=== PATIENT | female | born 1965 | race African-American/Black ===

== ENCOUNTER 2016-11-15 18:47 | Emergency (ER) | payer BC ==
[~2016-11-15] VITALS: Ht 154.9 cm; Wt 84.8 kg
[2016-11-15] MEDS ORDERED: Ipratropium 0.02% Inh Soln 2.5ml UD HHN ONE (19:45)
[2016-11-15] MEDS ORDERED: Albuterol ud Inhalation HHN ONE (19:45)
[2016-11-15] MEDS ORDERED: ALBUTEROL SULF8.5 GM INH (19:53)
[2016-11-15] MEDS ORDERED: PREDNISONE20 MG ORAL (19:53)
[2016-11-15] MEDS ORDERED: PROMETHAZINE-C118 M1 ORAL (19:53)
--- NOTE | 2016-11-15 19:53 | Emergency Room Report ---
History of Present Illness General Chief Complaint: Upper Respiratory Illness Source: Patient Present Illness HPI 51 YO Female presents to the ED c/o dry cough and chest congestion x 3 day(s). No fevers or chills. She denies history of asthma, COPD. Patient does report history of smoking in the past. Patient states that when she attempts to take a deep breath it causes her to cough multiple times. Patient denies chest pain. Patient denies swelling in the lower extremities or history of cardiac disease. Patient reports intermittent clear productive sputum and phlegm. She denies neck pain or stiffness denies abdominal pain or rashes.Denies CP, Palpitations, LOC, AMS, dizziness, Changes in Vision, Sensation, paresthesias, or a sudden severe headache. Allergies: Coded Allergies: No Known Allergies (Unverified , 11/15/16) Patient History Past Medical History: see triage record Past Surgical History: none Pertinent Family History: none Last Menstrual Period: menopause Now: No Immunizations: UTD Reviewed Nursing Documentation: PMH: Agreed, PSxH: Agreed Nursing Documentation-PMH Past Medical History: No Stated History Review of Systems All Other Systems: negative except mentioned in HPI Physical Exam Vital Signs Date Time Temp Pulse Resp B/P Pulse Ox O2 Delivery O2 Flow Rate FiO2 11/15/16 19:10 98.2 91 17 118/75 100 Room Air Sp02 EP Interpretation: reviewed, normal General Appearance: no apparent distress, alert, GCS 15, non-toxic Head: normocephalic, atraumatic Eyes: bilateral eye PERRL, bilateral eye normal inspection ENT: hearing grossly normal, normal pharynx, no angioedema, normal voice, TMs + canals normal, uvula midline Neck: full range of motion, no meningismus, no bony tend, supple/symm/no masses Respiratory: chest non-tender, speaking full sentences, wheezing Cardiovascular #1: regular rate, rhythm, no edema, normal capillary refill Musculoskeletal: back normal, gait/station normal, normal range of motion, non- tender, no calf tenderness Neurologic: alert, oriented x3, responsive, motor strength/tone normal, sensory intact, speech normal Psychiatric: judgement/insight normal, memory normal, mood/affect normal Skin: normal color, no rash, warm/dry, well hydrated Lymphatic: no adenopathy Medical Decision Making PA Attestation Dr. Jenkins is my supervising Physician whom patient management has been discussed with. Diagnostic Impression: Primary Impression: Acute bronchitis Qualified Codes: J20.9 - Acute bronchitis, unspecified ER Course Pt. presents to the ED c/o dry cough and chest congestion x 3 day(s). No fevers or chills. Ddx considered but are not limited to URI, pneumonia, PE, strep pharyngitis, meningitis. Vital signs: Pt.is afebrile VS are WNL H&PE are most consistent with bronchitis ORDERS: none required at this time, the diagnosis is clinical ED INTERVENTIONS: - Albuterol Nebulized -Atrovent Nebulized -- Re-evaluation wheezes have greatly improved bilaterally. DISCHARGE: At this time pt. is stable for d/c to home. Will provide printed patient care instructions, and any necessary prescriptions. Care plan and follow up instructions have been discussed with the patient prior to discharge. Last Vital Signs Date Time Temp Pulse Resp B/P Pulse Ox O2 Delivery O2 Flow Rate FiO2 11/15/16 19:10 98.2 91 17 118/75 100 Room Air Disposition: HOME, SELF-CARE Condition: Stable Referrals: NOT CHOSEN [facility]/MD,REFERRING (PCP) Patient Instructions: Acute Bronchitis, [id number] Additional Instructions: Take medications as directed. Follow up with PCP in 3-5 days Return sooner to ED if new symptoms occur, or current symptoms become worse. Do not drink alcohol, drive, or operate heavy machinery while taking cough syrup as this may cause drowsiness. - Please note that this Emergency Department Report was dictated using [employer] manager technology software, occasionally this can lead to erroneous entry secondary to interpretation by the dictation equipment. Marily Grijalva November 15, 2016 19:53
[2016-11-15 20:00] VITALS: BP 118/77
[2016-11-15 20:30] VITALS: BP 118/77
== END 2016-11-15 20:30 | disposition home or self-care (01) ==
LOC: EMR 19:35
DX: J20.9 Acute bronchitis, unspecified (principal); Z87.891 Personal history of nicotine dependence
CPT/HCPCS: 94640; 94664; 99284

== ENCOUNTER 2017-03-03 22:26 | Emergency (ER) | payer BC, OTHER ==
[~2017-03-03] VITALS: Ht 154.9 cm; Wt 79.8 kg
[~2017-03-03 22:26] MED LIST: ALBUTEROL SULF8.5 GM INH; PREDNISONE20 MG ORAL; PROMETHAZINE-C118 M1 ORAL
[2017-03-03 22:35] VITALS: BP 120/77
[2017-03-03] MEDS ORDERED: GLUCOSAMIN-CHO1 EAC1 PO (22:36)
[2017-03-03] MEDS ORDERED: Ketorolac 30mg Inj IV ONE (23:00)
[2017-03-03 23:48] LABS: BASOPHILS % (AUTO) 1.4 % (0.0-2.0); EOSINOPHILS % (AUTO) 4.1 % (0.0-3.0); LYMPHOCYTES % (AUTO) 37.4 % (20.0-45.0); MEAN CORPUSCULAR HEMOGLOBIN 27.7 PG (27.0-31.0); MEAN CORPUSCULAR HGB CONC 33.2 G/DL (32.0-36.0); MEAN CORPUSCULAR VOLUME 83 FL (80-99); MEAN PLATELET VOLUME 6.9 FL (6.5-10.1); MONOCYTES % (AUTO) 4.9 % (1.0-10.0); NEUTROPHILS % (AUTO) 52.2 % (45.0-75.0); PLATELET COUNT 324 K/UL (150-450); RED BLOOD COUNT 4.77 M/UL (4.20-5.40); RED CELL DISTRIBUTION WIDTH 12.9 % (11.6-14.8); WHITE BLOOD COUNT 6.7 K/UL (4.8-10.8)
[2017-03-04 00:05] LABS: ALANINE AMINOTRANSFERASE 20 U/L (3-33); ANION GAP 14 (5-15); ASPARTATE AMINO TRANSFERASE 25 U/L (5-40); CALCIUM 9.4 mg/dL (8.6-10.2); CARBON DIOXIDE 24 mEQ/L (20-30); CHLORIDE 102 mEQ/L (98-107); GLOMERULAR FILTRATION RATE > 60 mL/min (>60); HEMOLYSIS 24; POTASSIUM 3.5 mEQ/L (3.4-4.9); SODIUM 140 mEQ/L (135-145)
[2017-03-04 00:06] LABS: TROPONIN I < 0.30 ng/mL (<=0.30)
[2017-03-04 00:23] LABS: ALBUMIN/GLOBULIN RATIO 1.6 (1.0-2.7); TOTAL PROTEIN 7.9 g/dL (6.6-8.7)
--- NOTE | 2017-03-04 01:17 | Emergency Room Report ---
History of Present Illness General Chief Complaint: Pain Source: Patient Present Illness HPI Patient presents with several complaints. The main one is right shoulder pain. 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 This has gotten more painful. Pain 6/10, sharp aching with increased with movement. Also radiates to clavicle. No numbness. Never evaluated for this problem in the past. L shoulder also sore, but not as severe. Decreased ROM. In addition to that she has dyspnea on exertion. Denies chest pain. Has an inhaler but not using it. No fevers or productive cough. Never with cardiac evaluation. She feels this is due to her increased weight. She stopped smoking several years ago. This caused her to gain weight. She's having trouble losing weight. At work she was told that her blood sugar was high and that she needs to go see urgent care immediately. She didn't followup at that time. No NVD, dysuria. She also has chronic back pain. She will sometimes take motrin and other times take tylenol. Not helpful. Allergies: Coded Allergies: No Known Allergies (Unverified , 11/15/16) Patient History Pertinent Family History: DM, CVA Social History: Denies: alcohol use, drug use, smoking Reviewed Nursing Documentation: PMH: Agreed, PSxH: Agreed Nursing Documentation-PMH Past Medical History: No Stated History Review of Systems All Other Systems: negative except mentioned in HPI Physical Exam Vital Signs Date Time Temp Pulse Resp B/P Pulse Ox O2 Delivery O2 Flow Rate FiO2 03/03/17 22:28 98.4 91 16 120/77 97 Room Air Sp02 EP Interpretation: reviewed, normal General Appearance: well appearing, no apparent distress, GCS 15 Head: normocephalic Eyes: bilateral eye PERRL, bilateral eye normal inspection ENT: moist mucus membranes Neck: supple Respiratory: chest non-tender, lungs clear, normal breath sounds Cardiovascular #1: regular rate, rhythm Cardiovascular #2: 2+ radial (R) Gastrointestinal: normal inspection, normal bowel sounds, non tender, no mass, non-distended, overweight Musculoskeletal: back normal, gait/station normal, decreased range of motion - R arm, unable to lift hand to shoulder height. PROM also tender, no crepetance or deformity, tender - R clavicle and shoulder Neurologic: alert, oriented x3, motor strength/tone normal, DTRs symmetric, sensory intact, cerebellar normal, normal gait Psychiatric: mood/affect normal Skin: normal inspection, warm/dry Medical Decision Making Diagnostic Impression: Primary Impression: Calcific tendinitis Additional Impressions: Dyspnea Qualified Codes: R06.09 - Other forms of dyspnea Borderline diabetes ER Course Patient with several complaints. Shoulder consider tendonitis, bursitis, rotator cuff injury amongst others. With dyspnea, need to r/o cardiac disease - exam against PE. EKG, CXR, R shoulder xrays, labs. With h/o elevated glucose , labs also indicated. Treatment with Toradol. EKG normal. CXR normal. Shoulder with DJD and Ca tendon. Glucose slightly elevated. Pain improved with toradol. Sling applied by tech. Patient is improved. Neurovascular is normal. Patient admonished to see PMD for further w/u and stabilization. Discussed use of inhaler. Patient stable for outpatient observation and treatment. Laboratory Tests Test 03/03/17 23:00 White Blood Count 6.7 K/UL (4.8-10.8) Red Blood Count 4.77 M/UL (4.20-5.40) Hemoglobin 13.2 G/DL (12.0-16.0) Hematocrit 39.8 % (37.0-47.0) Mean Corpuscular Volume 83 FL (80-99) Mean Corpuscular Hemoglobin 27.7 PG (27.0-31.0) Mean Corpuscular Hemoglobin Concent 33.2 G/DL (32.0-36.0) Red Cell Distribution Width 12.9 % (11.6-14.8) Platelet Count 324 K/UL (150-450) Mean Platelet Volume 6.9 FL (6.5-10.1) Neutrophils (%) (Auto) 52.2 % (45.0-75.0) Lymphocytes (%) (Auto) 37.4 % (20.0-45.0) Monocytes (%) (Auto) 4.9 % (1.0-10.0) Eosinophils (%) (Auto) 4.1 % (0.0-3.0) H Basophils (%) (Auto) 1.4 % (0.0-2.0) Sodium Level 140 mEQ/L (135-145) Potassium Level 3.5 mEQ/L (3.4-4.9) Chloride Level 102 mEQ/L (98-107) Carbon Dioxide Level 24 mEQ/L (20-30) Anion Gap 14 (5-15) Blood Urea Nitrogen 18 mg/dL (7-23) Creatinine 1.0 mg/dL (0.5-0.9) H Estimate Glomerular Filtration Rate > 60 mL/min (>60) Glucose Level 121 mg/dL (74-106) H Calcium Level 9.4 mg/dL (8.6-10.2) Total Bilirubin 0.2 mg/dL (0.0-1.2) Aspartate Amino Transferase (AST) 25 U/L (5-40) Alanine Aminotransferase (ALT) 20 U/L (3-33) Alkaline Phosphatase 117 U/L (35-104) H Total Creatine Kinase 111 U/L (26-140) Troponin I < 0.30 ng/mL (<=0.30) Total Protein 7.9 g/dL (6.6-8.7) Albumin 4.9 g/dL (3.5-5.2) Globulin 3.0 g/dL Albumin/Globulin Ratio 1.6 (1.0-2.7) EKG Diagnostic Results Rate: normal Rhythm: NSR ST Segments: no acute changes Rhythm Strip Diag. Results EP Interpretation: yes Rhythm: NSR, no PVC's, no ectopy Chest X-Ray Diagnostic Results Chest X-Ray Diagnostic Results : Chest X-Ray Ordered: Yes # of Views/Limited/Complete: 1 View Indication: Chest Pain EP Interpretation: Yes Interpretation: no consolidation, no effusion, no pneumothorax Impression: No acute disease Interpreting ER Provider: Electronically signed by Jonathan Nelson MD Other X-Ray Diagnostic Results Other X-Ray Diagnostic Results : X-Ray ordered: Right shoulder # of Views/Limited Vs Complete: 3 View Indication: Pain EP Interpretation: Yes Interpretation: no dislocation, no soft tissue swelling, no fractures, other - Calcific tendinitis and degenerative disease Interpreting ER Provider: Electronically signed by Jonathan Nelson MD Last Vital Signs Date Time Temp Pulse Resp B/P Pulse Ox O2 Delivery O2 Flow Rate FiO2 03/04/17 01:34 98.4 16 120/77 97 Room Air 03/03/17 22:28 91 Status: improved Disposition: HOME, SELF-CARE Condition: Improved Scripts Albuterol Sulfate* (ALBUTEROL SULFATE MDI*) 8.5 Gm Hfa.aer.ad 1-2 PUFF INH Q6H Y for Shortness of Breath, #1 EA 0 Refills Prov: Jonathan Nelson M.D. 03/04/17 Ibuprofen* (MOTRIN*) 600 Mg Tablet 600 MG ORAL Q6H Y for For Pain, #20 TAB Prov: Jonathan Nelson M.D. 03/04/17 Referrals: NOT CHOSEN [facility]/,REFERRING (PCP) Jonathan Nelson M.D. Mar 04, 2017 01:17
[2017-03-04] MEDS ORDERED: IBUPROFEN600 MG ORAL (01:22)
[2017-03-04] MEDS ORDERED: ALBUTEROL SULF8.5 GM INH (01:22)
[2017-03-04 01:34] VITALS: BP 120/77
--- NOTE | 2017-03-04 11:01 | Diagnostic Imaging Report ---
Indication: PAIN x2 weeks Technique: 3 views of the right shoulder Comparison: none Findings: No acute fractures. No dislocations. Joint spaces are preserved Impression:Negative
--- NOTE | 2017-03-04 11:01 | Diagnostic Imaging Report ---
Indication: PAIN Technique: One view of the chest Comparison: none Findings: Lungs and pleural spaces are clear. Heart size is normal. There are degenerative changes of the thoracic spine Impression: No acute process
--- NOTE | 2017-03-06 17:15 | Cardiology Report ---
APPROVED REPORT EKG Measurement Heart [id number] Normal sinus rhythm Normal ECG
== END 2017-03-04 01:33 | disposition home or self-care (01) ==
LOC: EMR 23:20
DX: M75.31 Calcific tendinitis of right shoulder (principal); R06.00 Dyspnea, unspecified; G89.29 Other chronic pain; M54.9 Dorsalgia, unspecified; Z83.3 Family history of diabetes mellitus; Z82.3 Family history of stroke
CPT/HCPCS: 36415; 71010; 73030; 80053; 82550; 84484; 85025; 93005; 96374; 99284; J1885